=== PATIENT | female | born 1980 | race Native Hawaiian/Other Pacific Islander ===

== ENCOUNTER 2016-05-10 21:34 | Emergency (ER) | payer BC, OTHER ==
[~2016-05-10] VITALS: Ht 152.4 cm; Wt 57.2 kg
[2016-05-10 21:42] VITALS: BP_SYST 118
--- NOTE | 2016-05-10 21:42 | NUR ---
Patient triaged and placed in waiting room. VSS and patient appears in no acute distress at this time. Accompanied by spouse, awaiting available bed, and MD notified of need for MSE.
--- NOTE | 2016-05-10 22:00 | NUR ---
35 year female, alert oriented x 4, clear speech. Complain of feeling pressure on the chest non radiating. Noted pt homero a holter monitor. Pt stated that her primary physican placed the holter monitor today. Pt stable. No actue distress noted. will conitnue to monitor
--- NOTE | 2016-05-11 00:05 | NUR ---
ER at bedside examining patient.
[2016-05-11 00:36] LABS: BASOPHILS # (AUTO) 0.1 K/uL (0.0-0.2); BASOPHILS % (AUTO) 0.6 % (0.0-2.0); EOSINOPHILS # (AUTO) 0.1 K/uL (0.0-0.4); EOSINOPHILS % (AUTO) 1.2 % (0.0-4.0); HEMOGLOBIN 12.3 g/dL (12.0-16.0); LYMPHOCYTES % (AUTO) 21.4 % (20.5-51.5); MEAN CORPUSCULAR HEMOGLOBIN 32 pg (27-31); MEAN CORPUSCULAR HGB CONC 36 % (32-36); MEAN CORPUSCULAR VOLUME 88 fL (79.0-98.0); MONOCYTES # (AUTO) 0.6 K/uL (0.0-1.0); MONOCYTES % (AUTO) 6.1 % (1.7-9.3); NEUTROPHILS # (AUTO) 6.4 K/uL (1.8-7.7); NEUTROPHILS % (AUTO) 70.7 % (40.0-70.0); PLATELET COUNT (AUTO) 200 K/uL (130-430); RED BLOOD CELL COUNT(AUTO) 3.87 MIL/uL (4.2-6.2); RED CELL DISTRIBUTION WIDTH 13.1 % (9.0-15.0); WHITE BLOOD COUNT (AUTO) 9.2 K/uL (4.8-10.8)
[2016-05-11 00:48] LABS: CALCIUM 8.6 mg/dL (8.4-11.0); CREATININE 0.83 mg/dL (0.55-1.30); POTASSIUM 3.5 mmol/L (3.5-5.1)
[2016-05-11 02:23] VITALS: BP_SYST 118
--- NOTE | 2016-05-11 02:23 | NUR ---
Patient given written and verbal discharge instructions and verbalizes understanding. ER MD discussed with patient the results and treatment provided. Given copies of tests performed in ER. Patient in stable condition. ID arm band removed. No Rx of given. Patient educated on follow up with PMD. Pain Scale 0/10 at the time. Opportunity for questions provided and answered.
== END 2016-05-11 02:23 | disposition home or self-care (01) ==
LOC: SED 21:34
DX: R00.2 Palpitations (principal); R07.2 Precordial pain; Z91.048 Other nonmedicinal substance allergy status
CPT/HCPCS: 36415; 80048; 84484; 85025; 93005; 99285